=== PATIENT | female | born 1960 | race Caucasian/White ===

== ENCOUNTER 2019-09-19 15:21 | Emergency (ER) | payer OTHER ==
--- NOTE | 2019-09-19 15:29 | PDOC ---
Rapid Medical Evaluation Time Seen by Provider: 09/19/19 15:26 Medical Evaluation: 09/19/19 15:26 I have performed a brief in-person evaluation of this patient. The patient presents with a chief complaint of: pain to L knee s/p fall down stairs yesterday, no LOC, not taking ac Pertinent physical exam findings: ambulatory I have ordered the following: xray The patient will proceed to the ED for further evaluation. Discharge Disposition - Diagnosis Knee pain - Referrals - Patient Instructions - Post Discharge Activity
[2019-09-19 15:33] VITALS: BP 103/71; PULSE 95; TEMP 98.6; BMI 31.2
[2019-09-19] MEDS ORDERED: IBUPROFEN 400 MG TABLET (FP) PO ONE ×2 (15:49→15:50)
--- NOTE | 2019-09-19 15:56 | PDOC ---
History of Present Illness - General Chief Complaint: Injury Stated Complaint: INJURY Time Seen by Provider: 09/19/19 15:26 History Source: Patient Exam Limitations: No Limitations Past History - Past Medical History Allergies/Adverse Reactions: Allergies Allergy/AdvReac Type Severity Reaction Status Date / Time Penicillins Allergy Verified 09/19/19 15:54 Home Medications: Ambulatory Orders Ibuprofen [Motrin -] 600 mg PO QID PRN #28 tablet 09/19/19 COPD: No - Immunization History Immunization Up to Date: No - Psycho Social/Smoking Cessation Hx Smoking History: Never smoked Have you smoked in the past 12 months: No Information on smoking cessation initiated: No Hx Alcohol Use: No Drug/Substance Use Hx: No *Physical Exam - Vital Signs Last Vital Signs Temp Pulse Resp BP Pulse Ox 98.6 F 95 H 16 103/71 98 09/19/19 15:30 09/19/19 15:30 09/19/19 15:30 09/19/19 15:30 09/19/19 15:30 - Physical Exam General Appearance: No: Apparent Distress Extremity: positive: Other (+swelling of L knee, pain with extension of L knee, LLE neurovascularly intact) Neurologic: positive: Alert, Normal Mood/Affect ED Treatment Course - Medications Given in the ED: ED Medications Discontinued Medications Generic Name Dose Route Start Last Admin Trade Name Freq PRN Reason Stop Dose Admin Ibuprofen 800 mg 09/19/19 15:49 09/19/19 15:51 Motrin - PO 09/19/19 15:50 800 mg ONCE ONE Administration Medical Decision Making - Medical Decision Making 59 y/o F hx of kidney stones presents with L knee injury s/p mechanical fall yesterday. Patient missed 1 step while going downstairs, causing her to fall, with most of weight on L knee. Denies head trauma, LOC, hip/ankle pain, numbness /tingling, dizziness, sob, cp, headache, neck pain. Plan: L knee xray to r/o fracture, motrin 09/19/19 15:55 L knee xray shows displaced patellar fracture D/W ortho, dr. jimenez; plan: knee immobilizer, patient can WBAT, ice, f/u with him 09/20 at 9:30 AM (patient may likely need surgery) Patient given crutches as well Patient did not want rx for percocet 09/19/19 16:57 Discharge - Discharge Information Problems reviewed: Yes Clinical Impression/Diagnosis: Patella fracture Qualifiers: Encounter type: initial encounter Fracture type: closed Fracture morphology: unspecified fracture morphology Fracture alignment: displaced Laterality: left Qualified Code(s): S82.002A - Unspecified fracture of left patella, initial encounter for closed fracture Condition: Stable Disposition: HOME - Admission No - Additional Discharge Information Prescriptions: Ibuprofen [Motrin -] 600 mg PO QID PRN #28 tablet PRN Reason: Pain Prescription Drug Monitoring Program (I-STOP) results: I-STOP not reviewed - Follow up/Referral Referrals: ON STAFF,NOT [Primary Care Provider] - Marshall Jimenez MD [Staff Physician] - 09/20/19 9:30 am - Patient Discharge Instructions Patient Printed Discharge Instructions: DI for Patella Fracture Additional Instructions: Thank you for choosing [facility]. It was a pleasure taking care of you. You may take Motrin 600 mg every 6 hours by mouth as needed for mild to moderate pain. Take Motrin with food. Ice the site to decrease swelling Keep leg elevated above level of heart You may put weight on the left leg as tolerated Please follow-up with orthopedics tomorrow morning Return to the Emergency Department if your symptoms worsen or persist or have other concerning symptoms. - Post Discharge Activity Work/Back to School Note: Back to School
== END 2019-09-19 17:15 | disposition home or self-care (01) ==
LOC: JERFT 15:21
PROC: 2W3RXYZ Immobilization of Left Lower Leg using Other Device (ICD-10-PCS; principal; 2019-09-19)
DX: S82.092A Other fracture of left patella, initial encounter for closed fracture (principal); W10.8XXA Fall (on) (from) other stairs and steps, initial encounter; Y93.89 Activity, other specified; Y92.89 Other specified places as the place of occurrence of the external cause; Y99.8 Other external cause status; Z88.0 Allergy status to penicillin
CPT/HCPCS: 73562-TC-LT-FY; 99282-25